=== PATIENT | male | born 2000 | race Caucasian/White ===

== ENCOUNTER 2024-12-26 11:42 | Day surgery (SDC) | payer OTHER ==
[~2024-12-26] VITALS: Ht 162.6 cm; Wt 179.1 kg
[~2024-12-26 11:42] MED LIST: FERR-72 PO; ONDANSETRON HCL 4 MG/2 ML VIAL IVP PRN; SODIUM CHLORIDE 0.9% 1,000 ML ONE; TIRZ5PEN3 SQ
[2024-12-26] MEDS ORDERED: PROPOFOL 1% 20 ML VIAL IVP ONE (12:00)
[2024-12-26] MEDS ORDERED: LIDOCAINE/PF 2% 5 ML SYRINGE IVP ONE (12:00)
[2024-12-26] MEDS: SODIUM CHLORIDE 0.9% 1,000 ML IV ONE (12:15)
[2024-12-26] MEDS ORDERED: OXYGEN THERAPY IH SCH (13:30)
== END 2024-12-26 14:35 | disposition home or self-care (01) ==
LOC: SDS 11:42
PROVIDERS: ATTEND Specialist
DX: D64.9 Anemia, unspecified (principal); K29.50 Unspecified chronic gastritis without bleeding; B96.81 Helicobacter pylori [H. pylori] as the cause of diseases classified elsewhere; E66.01 Morbid (severe) obesity due to excess calories; Z79.899 Other long term (current) drug therapy; Z90.49 Acquired absence of other specified parts of digestive tract; Z68.44 Body mass index [BMI] 60.0-69.9, adult
CPT/HCPCS: 43239; 88305; 88342; C1769; J2704; J3490; J7030